=== PATIENT | male | born 2000 | race African-American/Black ===

== ENCOUNTER 2022-11-24 22:59 | Emergency (ER) | payer OTHER ==
[2022-11-24] MEDS ORDERED: SODIUM CHLORIDE 0.9% 1,000 ML IV STA (23:03)
--- NOTE | 2022-11-24 23:03 | ED Physician Documentation ---
History of Present Illness - Stated complaint Stated Complaint: ETOH - History obtained from History obtained from: Patient - Additonal information Additional information: HPI from patient and EMS. Patient was at a social gathering tonight with friends. He says he had a few drinks of alcohol composed of several different types of alcohol mixed together. He says he rarely drinks, and this is only the second time he has drank to excess. He denies LOC. He is noted to have episodic single clonic twitches, single twitches that reoccur seconds to minutes apart. He is in NAD, AAOx3, conversant and polite, follows commands. He does need occasional repeated instruction (such as instruction to not try to stand up, as he nearly fell when he first arrived by EMS and insisted on trying to transfer to ED stretcher without assistance). Denies injury. Patient was reportedly being driven home by a friend when patient became tearful and inconsolable, saying that he was upset about of close relative. On ED arrival, he tells me he is not depressed but just briefly became emotional regarding this issue. He says he thinks his friend overreacted in calling 911. Review of Systems Eyes: denies: Loss of vision, Decreased vision Cardiac: denies: Chest pain / pressure, Palpitations Respiratory: denies: Dyspnea GI: reports: Nausea. denies: Abdominal Pain, Vomiting Neurologic: denies: Focal weakness, Numbness, Confused, Altered mental status, Headache PD PAST MEDICAL HISTORY - Past Medical History Past Medical History: No - Allergies Allergies/Adverse Reactions: Allergies Allergy/AdvReac Type Severity Reaction Status Date / Time No Known Drug Allergies Allergy Verified 11/25/22 00:14 PD ED PE NORMAL - Vitals Vital signs reviewed: Yes - General General: Alert and oriented X 3, No acute distress, Well developed/nourished - HEENT HEENT: Moist mucous membranes - Cardiac Cardiac: RRR, No murmur - Respiratory Respiratory: No respiratory distress, Clear bilaterally - Abdomen Abdomen: Soft, Non tender - Neuro Neuro: Alert and oriented X 3, staff physician 2-12 intact, No motor deficit, No sensory deficit, Normal speech Eye Opening: Spontaneous Motor: Obeys Commands Verbal: Oriented GCS Score: 15 - Psych Psych: Normal mood, Normal affect Results - Vitals Vitals: Oxygen O2 Source Room air - Labs Labs: Laboratory Tests 0411/24/22 11/24/22 23:13 23:13 23:30 WBC 6.9 RBC 5.77 Hgb 16.2 Hct 45.4 MCV 78.7 L MCH 28.1 MCHC 35.7 RDW 13.2 Plt Count 332 MPV 8.7 Neut # (Auto) 3.4 Lymph # (Auto) 2.7 [place] # (Auto) 0.6 Eos # (Auto) 0.1 Baso # (Auto) 0.0 Absolute Nucleated RBC 0.00 Nucleated RBC % 0.0 Sodium 138 Potassium 3.1 L Chloride 104 Carbon Dioxide 24 Anion Gap 10.0 BUN 9 Creatinine 0.9 Estimated GFR (MDRD) 129 Glucose 111 H Calcium 9.5 Total Bilirubin 0.8 AST 25 ALT 32 Alkaline Phosphatase 55 Total Protein 8.4 H Albumin 4.5 Globulin 4.0 Albumin/Globulin Ratio 1.2 Lipase 34 Urine Opiates Screen NEGATIVE Ur Oxycodone Screen NEGATIVE Urine Methadone Screen NEGATIVE Ur Propoxyphene Screen NEGATIVE Ur Barbiturates Screen NEGATIVE Ur Tricyclics Screen NEGATIVE Ur Phencyclidine Scrn NEGATIVE Ur Amphetamine Screen NEGATIVE U Methamphetamines Scrn NEGATIVE U Benzodiazepines Scrn NEGATIVE Urine Cocaine Screen NEGATIVE U Cannabinoids Screen NEGATIVE Ethyl Alcohol 128.2 PD Medical Decision Making - ED course Complexity details: reviewed results, re-evaluated patient, considered differential, d/w patient ED course: Normal CBC. Mild hypokalemia on ER abdominal panel (3.1). serum ethanol level 128, which would explain behavior tonight (nearly falls when first arrives to ED despite insisting he can walk without assistance, labile emotions [employer]CO[employer]ING [employer]ACH[employer]ER). Prior to d/w, results d/w patient. He is no longer exhibiting the brief clonic jerks he had when I first evaluated him. Etiology of these jerking motions is unlikely to be due to medical pathology (neither ethanol (excepting withdrawal) nor his mild hypokalemia would cause this). I suspect there is a mental/psychological component, if not complete etiology, to these clonic jerks. Of note, on reevaluation, he is initially sleeping and exhibits no such movements. Upon waking, he does not have any more of these movements. I did ask him on initial HPI if he took any antihistamines such as benadryl, or anti- nauseants such as compazine, reglan (considering dystonic reaction/akithesia); he says he took no medication tonight of any kind. Departure - Departure Disposition: 01 Home, Self Care Clinical Impression: Hypokalemia, Alcohol intoxication Condition: Good Instructions: ED Alcohol Intoxication, ED Potassium Deficiency Comments: On tonight's tests, your alcohol level was elevated. As we discussed, elevated alcohol level should not cause the muscle twitching that you had when you first arrived to the emergency department. However, when I reevaluated you prior to discharge, it appears that these twitches have stopped. As important is that there are no findings on tight blood test to indicate a cause of the twitching. You do have a mildly low potassium level tonight. A low potassium level can be very dangerous, but your potassium level tonight was not nearly low enough to cause immediate concern nor explain any symptoms. You are given a dose of potassium orally prior to discharge. You should follow-up with your primary care provider, as they might recommend repeating this blood test to see that the potassium level has normalized. Discharge Date/Time: 11/25/22 02:50
[2022-11-24 23:37] LABS: MUDS CUTOFF CONCENTRATIONS CUTOFF CONC BELOW:
[2022-11-24 23:41] LABS: BASOPHILS % (AUTO) 0.3 %; EOSINOPHILS # (AUTO) 0.1 10^3/uL (0.0-0.7); EOSINOPHILS % (AUTO) 1.7 %; HCT - HEMATOCRIT 45.4 % (42.0-52.0); HGB - HEMOGLOBIN 16.2 g/dL (14.0-18.0); LYMPHOCYTES # (AUTO) 2.7 10^3/uL (1.5-3.5); LYMPHOCYTES % (AUTO) 39.1 %; MEAN CORPUSCULAR HEMOGLOBIN 28.1 pg (27.0-31.0); MEAN CORPUSCULAR HGB CONC 35.7 g/dL (32.0-36.0); MEAN CORPUSCULAR VOLUME 78.7 fL (80.0-94.0); MEAN PLATELET VOLUME 8.7 fL (7.4-11.4); MONOCYTES # (AUTO) 0.6 10^3/uL (0.0-1.0); MONOCYTES % (AUTO) 9.2 %; NEUTROPHILS # (AUTO) 3.4 10^3/uL (1.5-6.6); NEUTROPHILS % (AUTO) 49.6 %; PLT - PLATELET COUNT 332 10^3/uL (130-450); RED BLOOD COUNT 5.77 10^6/uL (4.70-6.10); RED CELL DISTRIBUTION WIDTH 13.2 % (12.0-15.0); WHITE BLOOD COUNT 6.9 x10^3/uL (4.8-10.8)
[2022-11-24 23:46] LABS: AMPHETAMINE SCREEN,URINE NEGATIVE (NEGATIVE); BARBITURATE SCREEN,UR NEGATIVE (NEGATIVE); BENZODIAZEPINES SCREEN, URINE NEGATIVE (NEGATIVE); COCAINE SCREEN URINE NEGATIVE (NEGATIVE); METHADONE SCREEN, URINE NEGATIVE (NEGATIVE); METHAMPHETAMINES SCREEN, URINE NEGATIVE (NEGATIVE); OPIATE SCREEN, URINE NEGATIVE (NEGATIVE); OXYCODONE SCREEN, URINE NEGATIVE (NEGATIVE); PROPOXYPHENE SCREEN, URINE NEGATIVE (NEGATIVE); THC CANNABINOID SCREEN, URINE NEGATIVE (NEGATIVE); TRICYCLIC ANTIDEPRESSANT,URINE NEGATIVE (NEGATIVE)
[2022-11-25 00:04] LABS: ALBUMIN 4.5 g/dL (3.2-5.5); ALBUMIN/GLOBULIN RATIO 1.2 (1.0-2.2); BILIRUBIN,TOTAL 0.8 mg/dL (0.2-1.0); CALCIUM 9.5 mg/dL (8.5-10.3); CREATININE 0.9 mg/dL (0.6-1.2); ETOH - ETHANOL 128.2 mg/dL; POTASSIUM 3.1 mmol/L (3.5-5.0); TOTAL PROTEIN 8.4 g/dL (6.7-8.2)
[2022-11-25] MEDS ORDERED: ONDANSETRON ODT 4 MG TABLET TL STA (00:31)
[2022-11-25] MEDS ORDERED: POTASSIUM CHLORIDE 20 MEQ TABLET PO STA (02:01)
[2022-11-25 02:50] VITALS: BP 133/89
== END 2022-11-25 02:50 | disposition home or self-care (01) ==
LOC: ED 22:59
DX: R25.3 Fasciculation (principal); E87.6 Hypokalemia; F10.129 Alcohol abuse with intoxication, unspecified; Y90.6 Blood alcohol level of 120-199 mg/100 ml
CPT/HCPCS: 36415; 80053; 80306; 80320; 83690; 85025; 99283; 99284; A9270; Q0162